=== PATIENT | female | born 1935 | race African-American/Black ===

== ENCOUNTER 2018-05-31 18:07 | Inpatient (IN) | payer MEDICARE, MEDICAID ==
[~2018-05-31] VITALS: Ht 160 cm; Wt 98.9 kg
[~2018-05-31 18:07] MED LIST: GABA-529 PO
[2018-05-31] MEDS ORDERED: SODIUM CHLORIDE 0.9% 1,000 ML IV ONE ×3 (18:21→22:02)
[2018-05-31] MEDS ORDERED: ONDANSETRON HCL 4MG/2ML VIAL IV STA (18:21)
[2018-05-31] MEDS ORDERED: PANTOPRAZOLE SODIUM 40 MG/VIAL IV ONE ×2 (19:00→22:00)
[2018-05-31 19:08] LABS: BASOPHILS % 0.7 % (0.0-2.0); EOSINOPHILS % 3.3 % (0.0-5.0); HEMATOCRIT. 29.2 % (36.0-48.0); HEMOGLOBIN. 9.3 g/dL (12.0-16.0); LYMPHOCYTES % 35.8 % (20.0-50.0); MEAN CORPUSCULAR HEMOGLOBIN 28.4 pg (28.0-32.0); MEAN PLATELET VOLUME 10.1 fl (7.4-10.4); MONOCYTES % 7.6 % (2.0-8.0); NEUTROPHILS % 52.6 % (40.0-76.0); PLATELET 207 x1000/uL (130-400); RED BLOOD CELL COUNT 3.28 mill/uL (4.2-5.4); RED CELL DISTRIBUTION WIDTH 14.7 % (11.6-14.6)
[2018-05-31 19:15] LABS: CHLORIDE 108 mEq/L (98-107)
[2018-05-31] MEDS ORDERED: MORPHINE SULFATE 4 MG/ML CPJ (NOT FOR IM USE) IV STA (22:02)
[2018-05-31] MEDS ORDERED: EPINEPHRINE 0.1MG/ML (1:10,000) 10ML SYR ONE (23:49)
[2018-06-01] VITALS (21 sets, daily range): BP systolic 35–125; BP diastolic 21–83
[2018-06-01] LABS: HEMATOCRIT. 21.6 % (36.0-48.0); MEAN CORPUSCULAR VOLUME 105.8 fL (81.0-99.0); MEAN PLATELET VOLUME 10.9 fl (7.4-10.4); PLATELET 131 x1000/uL (130-400); RED BLOOD CELL COUNT 2.04 mill/uL (4.2-5.4); RED CELL DISTRIBUTION WIDTH 15.5 % (11.6-14.6)
[2018-06-01 00:12] LABS: HEMOGLOBIN. 5.9 g/dL (12.0-16.0)
[2018-06-01] MEDS ORDERED: PIPERACILLIN/TAZ 3.375G PREMIX 50 ML IV ONE (01:15)
[2018-06-01] MEDS ORDERED: VANCOMYCIN 1 G PREMIX 200 ML IV ONE (01:15)
[2018-06-01] MEDS ORDERED: ATROPINE SULFATE 1MG/10ML SYR IV ONE (01:45)
[2018-06-01] MEDS ORDERED: EPINEPHRINE 0.1MG/ML (1:10,000) 10ML SYR ONE ×2 (01:47→15:00)
[2018-06-01] MEDS ORDERED: DEXT 5%/0.45% NACL 1000ML 1,000 ML IV SCH (02:30)
[2018-06-01] MEDS ORDERED: DOPAMINE 800MG PREMIX 250 ML IV ONE (02:32)
[2018-06-01 02:35] LABS: PLATELET ESTIMATE NORMAL
[2018-06-01] MEDS ORDERED: PANTOPRAZOLE SODIUM 40 MG/VIAL IV SCH (02:52)
[2018-06-01] MEDS ORDERED: VASOPRESSIN 10 UNIT in SODIUM CHLORIDE 0.9% 99.5 ML IV PRN (03:00)
[2018-06-01] MEDS ORDERED: OCTREOTIDE 1,000 MCG in SODIUM CHLORIDE 0.9% 100 ML IV PRN (03:00)
[2018-06-01 04:41] LABS: HEMATOCRIT. 34.2 % (36.0-48.0); HEMOGLOBIN. 9.8 g/dL (12.0-16.0); MEAN CORPUSCULAR HEMOGLOBIN 29.1 pg (28.0-32.0); MEAN CORPUSCULAR VOLUME 101.9 fL (81.0-99.0); RED BLOOD CELL COUNT 3.35 mill/uL (4.2-5.4)
[2018-06-01] MEDS ORDERED: DOPAMINE 800MG PREMIX 250 ML IV PRN (04:49)
[2018-06-01 04:53] LABS: CHLORIDE 117 mEq/L (98-107)
[2018-06-01] MEDS ORDERED: EPINEPHRINE 1 MG in SODIUM CHLORIDE 0.9% 249 ML IV PRN (05:00)
[2018-06-01 10:33] LABS: PLATELET ESTIMATE SLIGHTLY DECREASED
[2018-06-01 10:34] LABS: MEAN PLATELET VOLUME 9.5 fl (7.4-10.4); PLATELET 135 x1000/uL (130-400)
[2018-06-01] MEDS ORDERED: ETOMIDATE 2MG/ML 10ML VIAL IV ONE (14:33)
[2018-06-01] MEDS ORDERED: SUCCINYLCHOLINE CHLORIDE 200MG/10ML VIAL IV ONE (14:33)
[2018-06-01] MEDS ORDERED: CALCIUM CHLORIDE 1GM/10ML SYR IV ONE (15:00)
[2018-06-01] MEDS ORDERED: SODIUM BICARBONATE 7.5% 0.9 MEQ/ML 50ML SYR IV ONE (15:00)
== END 2018-06-01 05:05 | disposition expired | DRG 871 ==
LOC: ER 18:07 → MICUSO 06-01 00:13 → ENRESERV 06-01 00:18
PROVIDERS: ADMIT Specialist; ATTEND Specialist
PROC: 5A12012 Performance of Cardiac Output, Single, Manual (ICD-10-PCS; principal; 2018-06-01)
PROC: 30233L1 Transfusion of Nonautologous Fresh Plasma into Peripheral Vein, Percutaneous Approach (ICD-10-PCS; 2018-06-01)
PROC: 30233N1 Transfusion of Nonautologous Red Blood Cells into Peripheral Vein, Percutaneous Approach (ICD-10-PCS; 2018-06-01)
PROC: 30233K1 Transfusion of Nonautologous Frozen Plasma into Peripheral Vein, Percutaneous Approach (ICD-10-PCS; 2018-06-01)
PROC: 5A1935Z Respiratory Ventilation, Less than 24 Consecutive Hours (ICD-10-PCS; 2018-06-01)
DX: A41.9 Sepsis, unspecified organism (principal); J96.00 Acute respiratory failure, unspecified whether with hypoxia or hypercapnia; R65.21 Severe sepsis with septic shock; G93.41 Metabolic encephalopathy; J69.0 Pneumonitis due to inhalation of food and vomit; K92.2 Gastrointestinal hemorrhage, unspecified; I50.32 Chronic diastolic (congestive) heart failure; I11.0 Hypertensive heart disease with heart failure; R57.8 Other shock; F32.9 Major depressive disorder, single episode, unspecified; G89.29 Other chronic pain; D64.9 Anemia, unspecified; M54.9 Dorsalgia, unspecified; R26.9 Unspecified abnormalities of gait and mobility; R29.6 Repeated falls; E87.5 Hyperkalemia; I46.9 Cardiac arrest, cause unspecified; E11.9 Type 2 diabetes mellitus without complications; Z88.0 Allergy status to penicillin; Z79.899 Other long term (current) drug therapy; Z86.718 Personal history of other venous thrombosis and embolism; Z79.01 Long term (current) use of anticoagulants; Z90.49 Acquired absence of other specified parts of digestive tract
CPT/HCPCS: 31500; 36415; 51702; 71045; 74176; 80048; 80053; 82962; 85025; 86850; 86900; 86920; 86927; 92950; 93005; 96361; 96374; 96375; 99291; C9113; J0330; J1265; J2270; J2405; J2543; J3370; J3490; J7030; J7040; J7050; P9016; P9017; A4315